=== PATIENT | female | born 1930 | race Caucasian/White ===

== ENCOUNTER 2017-07-07 06:34 | Inpatient (IN) ==
[2017-07-07] MEDS ORDERED: IOPAMIDOL 100 ML BOTTLE IV ONE (06:35)
--- NOTE | 2017-07-07 07:22 | Emergency Department Note ---
Abdominal Pain HPI - General Chief Complaint: Abdominal Pain Stated Complaint: Lower Abdominal Discomfort Time Seen by Provider: 07/07/17 07:12 Mode of arrival: ambulatory - History of Present Illness HPI Narrative: Abdominal pain started yesterday evening, seemed to be worse this morning. She describes the pain as being a little bit more on the right lower quadrant than the left. Mainly suprapubic pain. She denies any urinary symptoms however. Denies any nausea now, no fevers, she did take some Tylenol at about 1:00 or 2: 00 in the morning. None since then. Denies epigastric discomfort, she still has her appendix, still has her gallbladder. No history of this pain before. MD Complaint: abdominal pain - Related Data Home Medications Medication Instructions Recorded Confirmed Cholecalciferol (Vitd3)/Vit K2 [D3 1,000 mg PO DAILY 09/07/16 07/07/17 + K2 Dots 1,000 Units Tab] Flaxseed 453 gm PO DAILY 09/07/16 07/07/17 L.acidoph,Paracasei, B.lactis 1 each PO DAILY 09/07/16 07/07/17 [Probiotic] Levothyroxine [Synthroid] 125 mcg PO DAILY 09/07/16 07/07/17 Mecobalamin [B-12] 1,000 mcg PO DAILY 09/07/16 07/07/17 [place]-3/Dha/Epa/Fish Oil [Fish Oil 1 each PO DAILY 09/07/16 07/07/17 1,000 mg Softgel] Vit A,C & E/Lutein/Minerals 1 tab PO DAILY 09/07/16 07/07/17 [Ocuvite] Warfarin [Coumadin] 5 mg PO DAILY 09/07/16 07/07/17 amLODIPine [Norvasc] 10 mg PO DAILY 09/07/16 07/07/17 Allergies Allergy/AdvReac Type Severity Reaction Status Date / Time clopidogrel [From Plavix] AdvReac Intermediate Weakness Verified 06/25/17 09:34 Review of Systems All systems ED: reviewed and negative except as stated. Abdominal Pain PMH - Past Medical History Attestation: Yes: The following information was validated with the patient. Medical history: Reports: arthritis, atrial fibrillation, hypertension, thyroid disease Surgical history ED: Reports: knee replacement, orthopedic, other, pacemaker/ AICD Family history: Reports: no significant family history - Social History Smoking status: Former smoker Alcohol use: Reports: Rarely Drug use: Reports: none Physical Exam - General Limitations: no limitations General appearance: alert - Head Head exam: atraumatic, normocephalic - Eye Eye exam: Present: normal appearance, PERRL, EOMI - ENT ENT exam: normal exam, normal oropharynx, mucous membranes moist, normal external ear exam - Neck Neck exam: Present: normal inspection, full ROM, trachea midline - Chest Chest inspection: Present: normal inspection, symmetric chest wall rise. Absent : tenderness - Respiratory Respiratory exam: Present: normal lung sounds bilaterally. Absent: respiratory distress, wheezes - Cardiovascular Cardiovascular exam: Present: regular rate, normal rhythm, normal heart sounds - Abdominal Exam Abdominal exam: Present: soft, tenderness, normal bowel sounds. Absent: distention, guarding, rebound - Extremities Exam Extremities exam: Present: normal inspection, full ROM. Absent: tenderness - Back Exam Back exam: Present: normal inspection. Absent: CVA tenderness (R), CVA tenderness (L) - Neurological Exam Neurological exam: Present: alert, oriented X3, CN II-XII intact - Psychiatric Psychiatric exam: Present: normal affect - Skin Skin exam: Present: warm, dry, intact. Absent: rash Course - Reevaluation(s) Reevaluation #1: Patient signout at 9 AM, labs are pending. Vital Signs Temperature 97.8 F 07/07/17 06:35 Pulse Rate 75 07/07/17 06:35 Respiratory Rate 18 07/07/17 06:35 Blood Pressure 151/68 07/07/17 06:35 Pulse Oximetry (%) 94 07/07/17 06:35 Temperature 97.8 F 07/07/17 06:35 Pulse Rate 75 07/07/17 07:32 Respiratory Rate 18 07/07/17 06:35 Blood Pressure 153/81 07/07/17 07:31 Pulse Oximetry (%) 94 07/07/17 07:32 Abdominal Pain - Lab Data Result diagrams: 07/07/17 07:44 07/07/17 07:44 Disposition Pt seen by RAG COLLECTOR/PA only: No Referrals: Hetal Stubbs MD [Primary Care Provider] -
[2017-07-07] MEDS ORDERED: LACTATED RINGERS 1,000 ML IV ONE (07:25)
[2017-07-07] MEDS ORDERED: ONDANSETRON 4 MG/2 ML VIAL IV ONE (07:25)
[2017-07-07] MEDS ORDERED: PHYTONADIONE 10 MG/ML AMPUL SQ ONE (09:55)
[2017-07-07] MEDS ORDERED: PHYTONADIONE 10 MG/ML AMPUL ONE (10:05)
[2017-07-07 11:04] LABS: ALT/SGPT 22 U/l (0-40); Albumin 4.2 gm/dL (3.2-5.2); Albumin/Globulin Ratio 1.6 (1.0-2.3); Alkaline Phosphatase 88 U/L (39-117); Anisocytosis 2+ (NONE SEEN); Band Neutrophils % 1 % (0-10); Blood Urea Nitrogen 18 mg/dl (8-23); C-Reactive Protein 1.5 mg/dl (0.0-0.8); Eosinophils % (Manual) 1 % (0-7); Hypochromasia 2+ (NONE SEEN); Lymphocytes % 22 % (15-49); Mean Cell Volume 66.5 fL (80.0-100.0); Mean Corpuscular HGB Conc 30.9 g/dL (31.0-36.0); Mean Corpuscular Hemoglobin 20.6 pg (26.0-34.0); Monocytes % (Manual) 6 % (1-12); Platelet Count 410 K/mcL (140-440); Platelet Estimate NORMAL (NORMAL); RBC Morphology ABNORM (NORMAL); Red Cell Distribution Width 21.1 % (11.5-14.5); Segmented Neutrophils % 70 % (38-78)
[2017-07-07 11:04] LABS: Appearance,Urine CLEAR; Bacteria,Urine 0 /hpf (0); Bilirubin,Urine NEG (NEG); Color,Urine YELLOW; Glucose,Urine (UA) NEGATIVE (NEG); Leukocyte Esterase,Urine NEG /uL (NEG); Nitrate,Urine NEG (NEG); Protein,Urine NEG (NEG); Specific Gravity,Urine 1.012 (1.000-1.035); Urine Blood NEG mg/dL (<0.03); Urine RBC 0 /hpf (0-1); Urine Squamous Epithelial Cell 0 /hpf (0-4); Urine WBC 1 /hpf (0-4); Urobilinogen,Urine NEG (NEG)
--- NOTE | 2017-07-07 11:27 | Emergency Department Note ---
Abdominal Pain HPI - General Chief Complaint: Abdominal Pain Stated Complaint: Lower Abdominal Discomfort Time Seen by Provider: 07/07/17 07:12 Source: patient, old records reviewed Mode of arrival: ambulatory Limitations: no limitations - History of Present Illness HPI Narrative: Dr. Skinner checked this 87-year-old female patient out to me at shift change. Reviewed his note as well as her summary in addition to his verbal checkout. I then reinterviewed the patient and reassessed her after getting laboratory back. She reports a history of diarrhea 3 months ago was followed by a colonoscopy showing colitis. She is on budesonide for that. She is also on Coumadin for her fibrillation and has had trouble controlling that since the diarrhea/colonoscopy and moving into [place]-she no longer cooks food but eats in the cafeteria. Her pain seems to be suprapubic and off to the right lower quadrant with perhaps even some at the right upper quadrant. She still has her appendix MD Complaint: abdominal pain - Related Data Home Medications Medication Instructions Recorded Confirmed Cholecalciferol (Vitd3)/Vit K2 [D3 1,000 mg PO DAILY 09/07/16 07/07/17 + K2 Dots 1,000 Units Tab] Flaxseed 453 gm PO DAILY 09/07/16 07/07/17 L.acidoph,Paracasei, B.lactis 1 each PO DAILY 09/07/16 07/07/17 [Probiotic] Levothyroxine [Synthroid] 125 mcg PO DAILY 09/07/16 07/07/17 Mecobalamin [B-12] 1,000 mcg PO DAILY 09/07/16 07/07/17 [place]-3/Dha/Epa/Fish Oil [Fish Oil 1 each PO DAILY 09/07/16 07/07/17 1,000 mg Softgel] Vit A,C & E/Lutein/Minerals 1 tab PO DAILY 09/07/16 07/07/17 [Ocuvite] Warfarin [Coumadin] 5 mg PO DAILY 09/07/16 07/07/17 amLODIPine [Norvasc] 10 mg PO DAILY 09/07/16 07/07/17 Allergies Allergy/AdvReac Type Severity Reaction Status Date / Time clopidogrel [From Plavix] AdvReac Intermediate Weakness Verified 06/25/17 09:34 Review of Systems All systems ED: reviewed and negative except as stated. Abdominal Pain PMH - Past Medical History Attestation: Yes: The following information was validated with the patient. Medical history: Reports: arthritis, atrial fibrillation, hypertension, thyroid disease Family history: Reports: no significant family history - Social History Smoking status: Former smoker Alcohol use: Reports: Rarely Drug use: Reports: none Physical Exam Her belly exam shows tenderness right lower quadrant and less so right upper quadrant. Alert oriented talking normally. Not appear to be in any distress - General Limitations: no limitations General appearance: alert Course Vital Signs Temperature 97.8 F 07/07/17 06:35 Pulse Rate 75 07/07/17 06:35 Respiratory Rate 18 07/07/17 06:35 Blood Pressure 151/68 07/07/17 06:35 Pulse Oximetry (%) 94 07/07/17 06:35 Temperature 97.8 F 07/07/17 06:35 Pulse Rate 75 07/07/17 13:27 Respiratory Rate 18 07/07/17 06:35 Blood Pressure 156/72 07/07/17 13:27 Pulse Oximetry (%) 95 07/07/17 13:27 Abdominal Pain - Lab Data Lab results reviewed: Yes I reviewed the patient's lab results. Result diagrams: 07/07/17 07:44 07/07/17 07:44 Lab Results 07/07/17 07/07/17 07/07/17 Range/Units 07:44 07:44 07:44 WBC 14.2 H (4.5-11.0) K/mcL RBC 4.70 (4.00-5.20) M/mcL Hgb 9.7 L (12.0-15.0) g/dL Hct 31.3 L (36.0-48.0) % MCV 66.5 L (80.0-100.0) fL MCH 20.6 L (26.0-34.0) pg MCHC 30.9 L (31.0-36.0) g/dL RDW 21.1 H (11.5-14.5) % Plt Count 410 (140-440) K/mcL MPV 8.6 (7.4-10.4) fL Total Counted 100 Seg Neutrophils % 70 (38-78) % Band Neutrophils % 1 (0-10) % Lymphocytes % 22 (15-49) % Monocytes % (Manual) 6 (1-12) % Eosinophils % (Manual) 1 (0-7) % Platelet Estimate Normal (NORMAL) RBC Morphology Abnorm A (NORMAL) Polychromasia 1+ A (NONE SEEN) Hypochromasia 2+ A (NONE SEEN) Anisocytosis 2+ A (NONE SEEN) Microcytosis 3+ A (NONE SEEN) RBC Fragments Few A (NONE SEEN) PT TNP INR TNP Sodium 140 (133-145) mmol/L Potassium 4.2 (3.3-5.1) mmol/L Chloride 104 (96-108) mmol/L Carbon Dioxide 22 (22-30) mmol/L Anion Gap 14.0 (8-16) BUN 18 (8-23) mg/dl Creatinine 0.9 (0.6-1.1) mg/dl GFR Calculation 57 Glucose 100 (70-105) mg/dL Calcium 9.2 (8.6-10.4) mg/dl Total Bilirubin 1.1 H (0.0-1.0) mg/dL AST 21 (0-37) U/l ALT 22 (0-40) U/l Alkaline Phosphatase 88 (39-117) U/L C-Reactive Protein 1.5 H (0.0-0.8) mg/dl Total Protein 6.8 (5.9-8.4) gm/dL Albumin 4.2 (3.2-5.2) gm/dL Globulin 2.6 (2.2-3.7) gm/dL Albumin/Globulin Ratio 1.6 (1.0-2.3) Urine Color Urine Appearance Urine pH (5.0-9.0) Ur Specific [place] (1.000-1.035) Urine Protein (NEG) mg/dL Urine Glucose (UA) (NEG) mg/dL Urine Ketones (NEG) mg/dL Urine Occult Blood (<0.03) mg/dL Urine Nitrate (NEG) Urine Bilirubin (NEG) mg/dL Urine Urobilinogen (NEG) mg/dL Ur Leukocyte Esterase (NEG) /uL Urine RBC (0-1) /hpf Urine WBC (0-4) /hpf Ur Squamous Epith Cells (0-4) /hpf Urine Bacteria (0) /hpf Ur Culture Indicated? 07/07/17 07/07/17 Range/Units 07:49 08:53 WBC (4.5-11.0) K/mcL RBC (4.00-5.20) M/mcL Hgb (12.0-15.0) g/dL Hct (36.0-48.0) % MCV (80.0-100.0) fL MCH (26.0-34.0) pg MCHC (31.0-36.0) g/dL RDW (11.5-14.5) % Plt Count (140-440) K/mcL MPV (7.4-10.4) fL Total Counted Seg Neutrophils % (38-78) % Band Neutrophils % (0-10) % Lymphocytes % (15-49) % Monocytes % (Manual) (1-12) % Eosinophils % (Manual) (0-7) % Platelet Estimate (NORMAL) RBC Morphology (NORMAL) Polychromasia (NONE SEEN) Hypochromasia (NONE SEEN) Anisocytosis (NONE SEEN) Microcytosis (NONE SEEN) RBC Fragments (NONE SEEN) PT 49.0 H INR 5.1 H Sodium (133-145) mmol/L Potassium (3.3-5.1) mmol/L Chloride (96-108) mmol/L Carbon Dioxide (22-30) mmol/L Anion Gap (8-16) BUN (8-23) mg/dl Creatinine (0.6-1.1) mg/dl GFR Calculation Glucose (70-105) mg/dL Calcium (8.6-10.4) mg/dl Total Bilirubin (0.0-1.0) mg/dL AST (0-37) U/l ALT (0-40) U/l Alkaline Phosphatase (39-117) U/L C-Reactive Protein (0.0-0.8) mg/dl Total Protein (5.9-8.4) gm/dL Albumin (3.2-5.2) gm/dL Globulin (2.2-3.7) gm/dL Albumin/Globulin Ratio (1.0-2.3) Urine Color Yellow Urine Appearance Clear Urine pH 7.0 (5.0-9.0) Ur Specific [place] 1.012 (1.000-1.035) Urine Protein Neg (NEG) mg/dL Urine Glucose (UA) Negative (NEG) mg/dL Urine Ketones Neg (NEG) mg/dL Urine Occult Blood Neg (<0.03) mg/dL Urine Nitrate Neg (NEG) Urine Bilirubin Neg (NEG) mg/dL Urine Urobilinogen Neg (NEG) mg/dL Ur Leukocyte Esterase Neg (NEG) /uL Urine RBC 0 (0-1) /hpf Urine WBC 1 (0-4) /hpf Ur Squamous Epith Cells 0 (0-4) /hpf Urine Bacteria 0 (0) /hpf Ur Culture Indicated? No - Radiology Data Radiology results reviewed: Yes I reviewed the patient's radiology results. CT scan of the abdomen pelvis with contrast shows mass at cecum 3.5 x 4 cm with dilated large appendix and stranding consistent with appendicitis or cecal mass or both. Disposition Pt seen by TRANSPORTATION MANAGER/PA only: No Clinical Impression: Supratherapeutic INR, Mass of cecum Appendicitis Qualifiers: Appendicitis type: acute appendicitis Acute appendicitis type: unspecified acute appendicitis type Qualified Code(s): K35.80 - Unspecified acute appendicitis Summary: She is given 2.5 mg subcu vitamin K for supratherapeutic INR-she is not currently bleeding anywhere obvious but is noted to have Hemoccult positive on stool-apparently she had several polyps removed during her colonoscopy recently. CT scan of the abdomen pelvis with contrast was ordered secondary to elevated white blood cell count and right lower quadrant pain. CT scan as above showed possible appendicitis or cecal mass or both Discussed case with Dr. Eduardo Deleon first-he advised me that when he did colonoscopy 13 days ago he did not see any cecal mass but because her INR is elevated this may be a hematoma. He had to give her vitamin K prior to colonoscopy secondary to elevated INR then. He said that he would contact Dr. Humphrey himself to further discuss Clinically the patient has pain at McBurney's point, leukocytosis and a dilated appendix with fat stranding on CT scan so appendicitis will need to be further evaluated however she is not a candidate for surgery at this point because of her elevated INR. I discussed her situation with Dr. Broderick Hmuphrey, surgeon, he agreed to accept the patient for further inpatient care and evaluation-see his consult note for details. He said that will notify hospitalist as well Disposition: Xfer As Inpt ([facility]) Condition: Serious Referrals: Eduardo Hull MD [Physician] - Broderick Humphrey MD [Physician] - Hetal Stubbs MD [Primary Care Provider] - Jose A Sol MD [Physician] -
--- NOTE | 2017-07-07 13:24 | Cat Scan Report ---
CLINICAL INFORMATION: Reason for Exam:abd pain, rlq pain FINDINGS: The patient was imaged following oral and intravenous contrast scanning from the diaphragm to the symphysis pubis. Sagittal and coronal reformats were created. The heart is mild to moderately enlarged and there is a dual-chamber pacemaker in the right side. There is a small to moderate size layering right-sided pleural effusion and a small layering left-sided effusion. Ill-defined patchy alveolar infiltrates are present in the basilar segments bilaterally with milder involvement inferiorly in the right middle lobe and lingula. The liver and spleen are normal in size and homogeneous. The gallbladder and bile ducts are normal. No abnormality seen within the pancreas, adrenals or kidneys. There is a lobulated mass in the cecum which extends up to but does not cover the ileocecal valve. It measures 3.3 x 3.5 x 4.4 cm. The appendix is distended and measures 12 mm at the base. There is stranding of the fat around the appendix and cecum. No abscess is present in this region. Barium is able to pass through normal terminal ileum into the colon without obstruction. Distal to the cecum the large intestine appears normal and there is no evidence of diverticulitis. Small amount of ascites is present deep in the right lower pelvis. Uterus and ovaries are atrophic. Urinary bladder appears normal but is unopacified. There is a [place] calcified plaque in the arteries throughout the abdomen and pelvis. Advanced degenerative disc disease and arthritis are present throughout the lumbar spine and visualized thoracic spine. No lytic or blastic lesion are detected. IMPRESSION: Mass in the cecum extending into the appendix. This is probably a colon cancer. This is less likely acute appendicitis with secondary infection of the cecum. Small amount of ascites Congestive heart failure which has become worse since 07/02/17 Dr. Espitia was called with the results Interpreted and Authenticated by: Deon Pereira 07/07/17
[2017-07-07] MEDS ORDERED: ONDANSETRON 4 MG/2 ML VIAL IV PRN (14:50)
[2017-07-07] MEDS ORDERED: ACETAMINOPHEN 325 MG TABLET PO PRN (14:50)
[2017-07-07] MEDS ORDERED: 0.9 % SODIUM CHLORIDE 250 ML IV SCH (15:15)
--- NOTE | 2017-07-07 15:20 | General Surg History&Physical ---
History of Present Illness Patient information: Note initiated : 07/07/17 at 3:14 pm Service Date, if different from initiated Date: [] Patient: Josh Ac a 87 y/o F admitted on for Lower Abdominal Discomfort. Chief Complaint: [Abdominal pain] HPI: Ms. Ac is a 87 year old F admitted with right lower quadrant and suprapubic abdominal pain without nausea or vomiting. Symptoms started on 06 July and progressed throughout the day. She had worsening symptoms this morning and presented to the emergency room. History is that she underwent a colonoscopy on 24 June. The colonoscopy report shows that the cecum was evaluated and ileocecal valve was cannulated and the terminal ileum was extended. Biopsies were taken from the ileum and random biopsies were taken from the colon to assess for microscopic colitis she also had polyps in the ascending descending and sigmoid colon which were snared. The patient has been on anticoagulant therapy and at the time of the colonoscopy and biopsies her INR was greater than 3. The exact number is not known. Today her INR is over 5. Pictures of the cecum including the opening of the appendix does not show a cecal mass. The appendiceal opening is unremarkable. CT of the abdomen done today shows a lobulated mass in the cecum which extends up to the ileocecal valve measuring 3.3 x 3.5 x 4.4 cm. The appendiceal appendix is distended to 12 mm and has surrounding stranding. The patient's symptoms suggest acute appendicitis of rather recent onset. Based on the history given it is probable that she has developed a hematoma of the cecum which has blocked the opening of the appendix causing obstructive type appendicitis. Since her INR is significantly elevated the plan will be to correct her INR and treat her appendicitis with antibiotics with the anticipation that as the hematoma resolves the inflammation of the appendix will resolve and she will not need operative therapy. The patient has a history of recent onset of cardiomegaly and symptoms of mild congestive heart failure this is confirmed by the recent chest x-ray as well as the CT that was done today. She does have recent onset of increasing shortness of breath. She was supposed to have echocardiogram done today but she ended up in the hospital. Review of Systems - Constitutional fatigue, weakness - EENT Nose, mouth and throat: abnormal hearing, dizziness - Cardiovascular dyspnea on exertion, irregular heart rhythm, lightheadedness - Respiratory dyspnea on exertion, other (Shortness of breath) - Gastrointestinal abdominal pain, cramping, diarrhea, loose stools, no nausea, no vomiting - Genitourinary Genitourinary: no hematuria, no pelvic pain, no urinary incontinence - Musculoskeletal arthralgias, stiffness - Integumentary no bleeding lesions, no changing lesions, no pruritus - Neurological no abnormal gait, no confusion, no frequent falls, no syncope - Psychiatric no anxiety, no confusion, no depression - Endocrine fatigue, no palpitations - Hematologic/Lymphatic no easy bleeding, no easy bruising, no lymphadenopathy - Allergic/Immunologic no tongue swelling, no throat swelling, no uticaria, no wheezing, no lip swelling Past History Past medical history: History of atrial fibrillation and supraventricular tachycardia AICD placement after radiofrequency ablation Total knee arthroplasty History of colon polyps Congestive heart failure Hypertension Chronic anemia Past surgical history: Total knee arthroplasty AICD placement Radiofrequency ablation for supraventricular tachycardia Past family history: History not known Past social history: Former smoker Occasional alcohol use Denies drug use Medications and Allergies Home Medications Medication Instructions Recorded Confirmed Type Cholecalciferol (Vitd3)/Vit K2 [D3 1,000 mg PO DAILY 09/07/16 07/07/17 History + K2 Dots 1,000 Units Tab] Flaxseed 453 gm PO DAILY 09/07/16 07/07/17 History L.acidoph,Paracasei, B.lactis 1 each PO DAILY 09/07/16 07/07/17 History [Probiotic] Levothyroxine [Synthroid] 125 mcg PO DAILY 09/07/16 07/07/17 History Mecobalamin [B-12] 1,000 mcg PO DAILY 09/07/16 07/07/17 History [place]-3/Dha/Epa/Fish Oil [Fish Oil 1 each PO DAILY 09/07/16 07/07/17 History 1,000 mg Softgel] Vit A,C & E/Lutein/Minerals 1 tab PO DAILY 09/07/16 07/07/17 History [Ocuvite] Warfarin [Coumadin] 5 mg PO DAILY 09/07/16 07/07/17 History amLODIPine [Norvasc] 10 mg PO DAILY 09/07/16 07/07/17 History Allergies Allergy/AdvReac Type Severity Reaction Status Date / Time clopidogrel [From Plavix] AdvReac Intermediate Weakness Verified 06/25/17 09:34 Exam Temp Pulse Resp BP Pulse Ox 97.8 F 75 18 156/72 95 07/07/17 06:35 07/07/17 13:27 07/07/17 06:35 07/07/17 13:27 07/07/17 13:27 - General physical appearance well developed, well nourished, no distress - Eyes PERRL, normal ocular movement - ENT normal pinna, normal nares, normal mucosa, no hearing loss, no congestion - Head Head exam IM: Present: atraumatic, normocephalic - Neck no masses, no bruits, trachea midline, no lymphadectomy, no venous distension - Cardiovascular Cardiovascular exam IM: Present: normal rate and rhythm - Respiratory normal expansion, normal respiratory effort, other (Basilar rales with decreased breath sounds at bases) - Abdomen Abdomen: Present: soft, tender (Mild abdominal distention with good active bowel sounds; tenderness with guarding and right lower quadrant but without mass ), bowel sounds Hernia: Present: none - Genitourinary Present: normal external genitalia - Integumentary Present: no rash, no growths, no abnormal pigmentation - Neurologic Present: normal coordination, normal sensation - Musculoskeletal Present: normal gait, normal posture - Psychiatric Present: oriented to time, oriented to person, oriented to place, speech is normal, memory intact Assessment and Plan (1) Appendicitis Will start with antibiotic treatment since her appendiceal inflammation is secondary to a probable cecal hematoma If her symptoms should worsen she will have laparotomy Status: Acute Qualifiers: Appendicitis type: acute appendicitis Acute appendicitis type: unspecified acute appendicitis type Qualified Code(s): K35.80 - Unspecified acute appendicitis (2) Mass of cecum Probable hematoma related to colonoscopy and cecal biopsies with associated anticoagulated state Status: Acute (3) Supratherapeutic INR will correct with vitamin K and fresh frozen plasma to a level less than 2 Status: Acute (4) Congestive heart failure We will monitor closely and add Lasix for diuresis as she received her FFP to prevent worsening Baseline proBNP will be obtained Baseline echocardiogram will also be done Status: Acute (5) Hypertension Continue home medications Status: Acute
[2017-07-07] MEDS: PIPERACILLIN SODIUM/TAZOBACTAM 3.375 GM in 0.9 % SODIUM CHLORIDE 50 ML IV SCH ×2 (17:37→23:47)
[2017-07-07] MEDS: FUROSEMIDE 20 MG/2 ML VIAL IV SCH (17:37)
[2017-07-07] MEDS: 0.9 % SODIUM CHLORIDE 1,000 ML IV SCH (17:37)
[2017-07-07] MEDS: PHYTONADIONE 10 MG/ML AMPUL SQ SCH (17:39)
[2017-07-07] MEDS: POTASSIUM CHLORIDE 20 MEQ TABLET PO SCH (17:40)
[2017-07-08] MEDS: PIPERACILLIN SODIUM/TAZOBACTAM 3.375 GM in 0.9 % SODIUM CHLORIDE 50 ML IV SCH ×5 (00:05→23:58)
[2017-07-08] MEDS ORDERED: FUROSEMIDE 20 MG/2 ML VIAL IV ONE ×2 (00:21→00:33)
[2017-07-08] MEDS: 0.9 % SODIUM CHLORIDE 10 ML SYRINGE IV SCH ×4 (00:31→21:48)
[2017-07-08] MEDS ORDERED: NITROGLYCERIN 0.4 MG TAB.SUBL SL PRN (02:18)
[2017-07-08] MEDS ORDERED: 0.9 % SODIUM CHLORIDE 1,000 ML IV SCH (02:30)
[2017-07-08] MEDS ORDERED: NITROGLYCERIN 0.4 MG TAB.SUBL SL ONE (02:33)
[2017-07-08] MEDS: PHYTONADIONE 10 MG/ML AMPUL SQ SCH ×2 (03:43→17:18)
[2017-07-08 03:54] LABS: Basophils # (Auto) 0 K/mcL (0.0-0.3); Basophils % (Auto) 0.3 % (0.0-2.0); Eosinophils # (Auto) 0.3 K/mcL (0.0-0.7); Eosinophils % (Auto) 3.3 % (0.0-7.0); Granulocytes % (Auto) 70.3 % (38.0-78.0); Lymphocytes # (Auto) 1.5 K/mcL (1.5-4.8); Lymphocytes % (Auto) 18.4 % (15.5-49.0); Mean Cell Volume 65.8 fL (80.0-100.0); Mean Corpuscular HGB Conc 30.8 g/dL (31.0-36.0); Mean Corpuscular Hemoglobin 20.3 pg (26.0-34.0); Monocytes # (Auto) 0.6 K/mcL (0.1-0.9); Monocytes % (Auto) 7.7 % (1.0-12.0); Platelet Count 411 K/mcL (140-440); RBC 4.36 M/mcL (4.00-5.20); Red Cell Distribution Width 20.1 % (11.5-14.5)
[2017-07-08 03:57] LABS: Creatine Kinase MB 1.6 ng/ml (0-2.9)
[2017-07-08 04:21] LABS: ALT/SGPT 18 U/l (0-40); Albumin 4.1 gm/dL (3.2-5.2); Albumin/Globulin Ratio 1.7 (1.0-2.3); Alkaline Phosphatase 88 U/L (39-117); Blood Urea Nitrogen 11 mg/dl (8-23); Creatine Kinase 108 IU/L (24-170)
[2017-07-08] MEDS: LEVOTHYROXINE 125 MCG TABLET PO SCH (07:11)
[2017-07-08 07:12] LABS: Mean Corpuscular HGB Conc 31.2 g/dL (31.0-36.0); Mean Corpuscular Hemoglobin 20.6 pg (26.0-34.0); Platelet Count 410 K/mcL (140-440); RBC 4.38 M/mcL (4.00-5.20)
[2017-07-08 07:31] LABS: ALT/SGPT 18 U/l (0-40); Albumin/Globulin Ratio 1.4 (1.0-2.3); Alkaline Phosphatase 85 U/L (39-117); Bilirubin,Direct 0.3 mg/dL (0.0-0.3); Blood Urea Nitrogen 11 mg/dl (8-23); Gamma Glutamyl Transpeptidase 32 U/L (5-36); Uric Acid 3.6 mg/dL (2.5-8.0)
[2017-07-08] MEDS: FUROSEMIDE 20 MG/2 ML VIAL IV SCH ×2 (07:58→16:59)
[2017-07-08] MEDS: MAGNESIUM OXIDE 400 MG TABLET PO SCH ×2 (07:59→20:30)
[2017-07-08] MEDS: amLODIPine 10 MG TABLET PO SCH (07:59)
[2017-07-08] MEDS: POTASSIUM CHLORIDE 20 MEQ TABLET PO SCH ×2 (07:59→16:58)
[2017-07-08 08:29] LABS: Anisocytosis 1+ (NONE SEEN); Eosinophils % (Manual) 1 % (0-7); Hypochromasia 2+ (NONE SEEN); Lymphocytes % 25 % (15-49); Monocytes % (Manual) 7 % (1-12); Ovalocytes FEW (NONE SEEN); Platelet Estimate NORMAL (NORMAL); RBC Morphology ABNORM (NORMAL); Segmented Neutrophils % 67 % (38-78)
[2017-07-08] MEDS ORDERED: 0.9 % SODIUM CHLORIDE 250 ML IV SCH (09:00)
--- NOTE | 2017-07-08 12:49 | General Surgery Progress Note ---
Subjective Patient reports: feels better, pain is less, flatus, no bowel movement, afebrile Narrative: Note initiated : 07/08/17 at 12:46 pm Service Date, if different from initiated Date: [] Patient: Josh Ac 87 y/o F admitted on 07/07/17 for Lower Abd Discomfort /Appendicitis, Mass of Cecum. Chief Complaint: [Patient is doing well. She had some upper midline back pain associated with a warm feeling across her chest and the subclavicular areas bilaterally during the night. Her vital signs were totally stable. She did not have any tachycardia or changes in vitals during this time. A code white was undertaken. All of the testing was normal and the patient remained stable though she still has the upper back pain which is a chronic entity. She states that the right lower quadrant discomfort is significantly improved. She has minimal tenderness with deep palpation. She denies nausea. She has been afebrile and her white blood count has decreased to 7.7. Her PT has decreased to 203.5 with INR 2. Her comprehensive panel is normal.] Objective Temp Pulse Resp BP Pulse Ox 98.7 F 76 16 130/70 96 07/08/17 12:05 07/08/17 12:05 07/08/17 12:05 07/08/17 12:05 07/08/17 12:05 - Additional Data Intake & Output - Last 24 hours: Intake & Output 07/06/17 07/07/17 07/08/17 07/09/17 05:59 05:59 05:59 05:59 Intake Total 1978 / 1978 660 / 660 Output Total 3025 / 3025 1300 / 1300 Balance -1046 / -1046 -640 / -640 Weight 158 lb - General physical appearance no distress, other (Mild upper and mid back pain which is unchanged since admission. Her abdominal pain is significantly improved) - Eyes PERRL (.) - ENT no congestion - Neck no venous distension - Respiratory normal expansion, normal respiratory effort, clear to auscultation - Cardiovascular Cardiovascular exam: Present: irregular rhythm, +S1, +S2. Absent: JVD - Abdomen tender (Mild tenderness in right lower quadrant without guarding or mass; good active bowel sounds) - Integumentary no rash, no growths, no abnormal pigmentation - Neurologic normal coordination, normal sensation - Musculoskeletal normal gait, normal posture - Psychiatric oriented to time, oriented to person, oriented to place, speech is normal, memory intact - Labs 07/08/17 05:49 07/08/17 05:49 Diabetes panel 07/08/17 07/08/17 Range/Units 02:41 05:49 Sodium 142 143 (133-145) mmol/L Potassium 3.9 3.8 (3.3-5.1) mmol/L Chloride 103 101 (96-108) mmol/L Carbon Dioxide 27 28 (22-30) mmol/L BUN 11 11 (8-23) mg/dl Creatinine 0.9 1.1 (0.6-1.1) mg/dl Glucose 94 92 (70-105) mg/dL Calcium 9.4 9.2 (8.6-10.4) mg/dl AST 12 12 (0-37) U/l ALT 18 18 (0-40) U/l Alkaline Phosphatase 88 85 (39-117) U/L Total Protein 6.5 6.8 (5.9-8.4) gm/dL Albumin 4.1 4.0 (3.2-5.2) gm/dL Triglycerides 84 (<150) mg/dl Calcium panel 07/08/17 07/08/17 Range/Units 02:41 05:49 Calcium 9.4 9.2 (8.6-10.4) mg/dl Phosphorus 4.4 (2.7-4.5) mg/dL Albumin 4.1 4.0 (3.2-5.2) gm/dL Pituitary panel 07/08/17 07/08/17 Range/Units 02:41 05:49 Sodium 142 143 (133-145) mmol/L Potassium 3.9 3.8 (3.3-5.1) mmol/L Chloride 103 101 (96-108) mmol/L Carbon Dioxide 27 28 (22-30) mmol/L BUN 11 11 (8-23) mg/dl Creatinine 0.9 1.1 (0.6-1.1) mg/dl Glucose 94 92 (70-105) mg/dL Calcium 9.4 9.2 (8.6-10.4) mg/dl Adrenal panel 07/08/17 07/08/17 Range/Units 02:41 05:49 Sodium 142 143 (133-145) mmol/L Potassium 3.9 3.8 (3.3-5.1) mmol/L Chloride 103 101 (96-108) mmol/L Carbon Dioxide 27 28 (22-30) mmol/L BUN 11 11 (8-23) mg/dl Creatinine 0.9 1.1 (0.6-1.1) mg/dl Glucose 94 92 (70-105) mg/dL Calcium 9.4 9.2 (8.6-10.4) mg/dl Total Bilirubin 1.7 H 1.6 H (0.0-1.0) mg/dL AST 12 12 (0-37) U/l ALT 18 18 (0-40) U/l Alkaline Phosphatase 88 85 (39-117) U/L Total Protein 6.5 6.8 (5.9-8.4) gm/dL Albumin 4.1 4.0 (3.2-5.2) gm/dL Assessment and Plan (1) Appendicitis Status: Acute Assessment and plan: Symptoms are clinically improved with Decreased tenderness. We will continue IV antibiotics Will allow clear liquids Current Visit: Yes (2) Mass of cecum Status: Acute Current Visit: Yes (3) Supratherapeutic INR Status: Acute Assessment and plan: Improved with vitamin K and fresh frozen plasma 1 unit of fresh frozen plasma will be given today Current Visit: Yes (4) Congestive heart failure Status: Acute Assessment and plan: Clinically stable with no evidence of exacerbation of CHF. Current Visit: Yes (5) Hypertension Status: Acute Assessment and plan: Clinically controlled Current Visit: Yes - Time Spent With Patient Total time spent is greater than 50% in coordination of care (as documented) at patient's floor/unit and/or counseling patient:
[2017-07-08] MEDS: 0.9 % SODIUM CHLORIDE 1,000 ML IV SCH (16:59)
[2017-07-09] MEDS: 0.9 % SODIUM CHLORIDE 10 ML SYRINGE IV SCH ×3 (05:28→22:13)
[2017-07-09] MEDS: PIPERACILLIN SODIUM/TAZOBACTAM 3.375 GM in 0.9 % SODIUM CHLORIDE 50 ML IV SCH ×2 (05:28→11:35)
[2017-07-09 05:51] LABS: Mean Cell Volume 66.1 fL (80.0-100.0); Mean Corpuscular HGB Conc 31.2 g/dL (31.0-36.0); Mean Corpuscular Hemoglobin 20.6 pg (26.0-34.0); Platelet Count 451 K/mcL (140-440); RBC 4.78 M/mcL (4.00-5.20); Red Cell Distribution Width 20.2 % (11.5-14.5)
[2017-07-09 06:08] LABS: ALT/SGPT 15 U/l (0-40); Albumin 3.9 gm/dL (3.2-5.2); Albumin/Globulin Ratio 1.3 (1.0-2.3); Alkaline Phosphatase 81 U/L (39-117); Bilirubin,Direct 0.3 mg/dL (0.0-0.3); Blood Urea Nitrogen 13 mg/dl (8-23); Gamma Glutamyl Transpeptidase 32 U/L (5-36); Magnesium 2.2 mg/dL (1.6-2.5); Uric Acid 3.3 mg/dL (2.5-8.0)
[2017-07-09 06:44] LABS: Anisocytosis 1+ (NONE SEEN); Band Neutrophils % 2 % (0-10); Eosinophils % (Manual) 6 % (0-7); Hypochromasia 2+ (NONE SEEN); Lymphocytes % 29 % (15-49); Monocytes % (Manual) 16 % (1-12); Platelet Estimate INCREASED (NORMAL); RBC Morphology ABNORM (NORMAL); Segmented Neutrophils % 47 % (38-78)
[2017-07-09] MEDS: LEVOTHYROXINE 125 MCG TABLET PO SCH (07:05)
[2017-07-09] MEDS: amLODIPine 10 MG TABLET PO SCH (08:10)
[2017-07-09] MEDS: FUROSEMIDE 20 MG/2 ML VIAL IV SCH ×2 (08:10→16:16)
[2017-07-09] MEDS: POTASSIUM CHLORIDE 20 MEQ TABLET PO SCH ×2 (08:10→17:56)
[2017-07-09] MEDS: MAGNESIUM OXIDE 400 MG TABLET PO SCH ×2 (08:10→20:04)
[2017-07-09] MEDS: 0.9 % SODIUM CHLORIDE 1,000 ML IV SCH ×2 (14:02→18:43)
--- NOTE | 2017-07-09 14:26 | General Surgery Progress Note ---
Subjective Patient reports: feels better, pain is less, flatus, bowel movement, afebrile Narrative: Note initiated : 07/09/17 at 2:24 pm Service Date, if different from initiated Date: [] Patient: Josh Ac 87 y/o F admitted on 07/07/17 for Lower Abd Discomfort /Appendicitis, Mass of Cecum. Chief Complaint: [Patient feels much better. She has almost no pain at this time. She complains of hunger. She is having flatus and bowel movement and is tolerating liquid diet without difficulty. She is afebrile and her white blood count is normal.] Objective Temp Pulse Resp BP Pulse Ox 97.7 F 78 16 127/69 96 07/09/17 12:00 07/09/17 04:00 07/09/17 12:00 07/09/17 12:00 07/09/17 12:00 - Additional Data Intake & Output - Last 24 hours: Intake & Output 07/07/17 07/08/17 07/09/17 07/10/17 05:59 05:59 05:59 05:59 Intake Total 1978 / 1978 3050 / 3050 530 / 530 Output Total 3025 / 3025 3525 / 3525 Balance -1046 / -1046 -475 / -475 530 / 530 Weight 158 lb 152 lb - General physical appearance no distress, no pain - Eyes PERRL - ENT no congestion - Neck no venous distension - Respiratory normal respiratory effort, clear to auscultation - Cardiovascular Cardiovascular exam: Present: normal rate and rhythm, RRR, +S1, +S2. Absent: JVD - Abdomen soft, non tender, bowel sounds (Abdomen is soft benign and nontender with active bowel sounds. No masses or guarding) - Integumentary no rash, no growths, no abnormal pigmentation - Neurologic normal coordination, normal sensation - Musculoskeletal normal gait, normal posture - Psychiatric oriented to time, oriented to person, oriented to place, speech is normal, memory intact - Labs 07/09/17 04:25 07/09/17 04:25 Diabetes panel 07/09/17 Range/Units 04:25 Sodium 142 (133-145) mmol/L Potassium 4.2 (3.3-5.1) mmol/L Chloride 103 (96-108) mmol/L Carbon Dioxide 27 (22-30) mmol/L BUN 13 (8-23) mg/dl Creatinine 1.2 H (0.6-1.1) mg/dl Glucose 85 (70-105) mg/dL Calcium 9.4 (8.6-10.4) mg/dl AST 12 (0-37) U/l ALT 15 (0-40) U/l Alkaline Phosphatase 81 (39-117) U/L Total Protein 6.8 (5.9-8.4) gm/dL Albumin 3.9 (3.2-5.2) gm/dL Triglycerides 81 (<150) mg/dl Calcium panel 07/09/17 Range/Units 04:25 Calcium 9.4 (8.6-10.4) mg/dl Phosphorus 4.7 H (2.7-4.5) mg/dL Albumin 3.9 (3.2-5.2) gm/dL Pituitary panel 07/09/17 Range/Units 04:25 Sodium 142 (133-145) mmol/L Potassium 4.2 (3.3-5.1) mmol/L Chloride 103 (96-108) mmol/L Carbon Dioxide 27 (22-30) mmol/L BUN 13 (8-23) mg/dl Creatinine 1.2 H (0.6-1.1) mg/dl Glucose 85 (70-105) mg/dL Calcium 9.4 (8.6-10.4) mg/dl Adrenal panel 07/09/17 Range/Units 04:25 Sodium 142 (133-145) mmol/L Potassium 4.2 (3.3-5.1) mmol/L Chloride 103 (96-108) mmol/L Carbon Dioxide 27 (22-30) mmol/L BUN 13 (8-23) mg/dl Creatinine 1.2 H (0.6-1.1) mg/dl Glucose 85 (70-105) mg/dL Calcium 9.4 (8.6-10.4) mg/dl Total Bilirubin 1.4 H (0.0-1.0) mg/dL AST 12 (0-37) U/l ALT 15 (0-40) U/l Alkaline Phosphatase 81 (39-117) U/L Total Protein 6.8 (5.9-8.4) gm/dL Albumin 3.9 (3.2-5.2) gm/dL Assessment and Plan (1) Appendicitis Status: Acute Assessment and plan: Symptoms are clinically improved with Decreased tenderness. We will continue IV antibiotics Diet is advanced to full liquids Current Visit: Yes (2) Mass of cecum Status: Acute Assessment and plan: Schedule for CT of the abdomen and pelvis with contrast in the morning Current Visit: Yes (3) Supratherapeutic INR Status: Acute Assessment and plan: Present INR 1.8; will allow to slowly decrease at this time Current Visit: Yes (4) Congestive heart failure Status: Acute Assessment and plan: Clinically stable with no evidence of exacerbation of CHF. Current Visit: Yes (5) Hypertension Status: Acute Assessment and plan: Clinically controlled Current Visit: Yes - Time Spent With Patient Total time spent is greater than 50% in coordination of care (as documented) at patient's floor/unit and/or counseling patient:
[2017-07-09] MEDS: PIPERACILLIN SODIUM/TAZOBACTAM 2.25 GM in 0.9 % SODIUM CHLORIDE 50 ML IV SCH ×2 (17:56→23:50)
[2017-07-10] MEDS: 0.9 % SODIUM CHLORIDE 10 ML SYRINGE IV SCH ×2 (05:42→12:21)
[2017-07-10] MEDS: PIPERACILLIN SODIUM/TAZOBACTAM 2.25 GM in 0.9 % SODIUM CHLORIDE 50 ML IV SCH ×2 (05:43→12:20)
[2017-07-10 06:30] LABS: Mean Cell Volume 66.3 fL (80.0-100.0); Mean Corpuscular HGB Conc 31.5 g/dL (31.0-36.0); Mean Corpuscular Hemoglobin 20.9 pg (26.0-34.0); Platelet Count 410 K/mcL (140-440); Red Cell Distribution Width 20.6 % (11.5-14.5)
[2017-07-10] MEDS: LEVOTHYROXINE 125 MCG TABLET PO SCH (07:10)
[2017-07-10 07:17] LABS: ALT/SGPT 14 U/l (0-40); Albumin 3.6 gm/dL (3.2-5.2); Albumin/Globulin Ratio 1.2 (1.0-2.3); Alkaline Phosphatase 81 U/L (39-117); Bilirubin,Direct 0.3 mg/dL (0.0-0.3); Blood Urea Nitrogen 15 mg/dl (8-23); Gamma Glutamyl Transpeptidase 33 U/L (5-36); Magnesium 2.3 mg/dL (1.6-2.5); Uric Acid 3.3 mg/dL (2.5-8.0)
[2017-07-10 07:48] LABS: Anisocytosis 1+ (NONE SEEN); Band Neutrophils % 1 % (0-10); Basophils % (Manual) 2 % (0-2); Eosinophils % (Manual) 13 % (0-7); Lymphocytes % 38 % (15-49); Monocytes % (Manual) 3 % (1-12); Ovalocytes 1+ (NONE SEEN); Platelet Estimate NORMAL (NORMAL); RBC Morphology ABNORM (NORMAL); Segmented Neutrophils % 43 % (38-78)
[2017-07-10] MEDS: FUROSEMIDE 20 MG/2 ML VIAL IV SCH (09:47)
[2017-07-10] MEDS: amLODIPine 10 MG TABLET PO SCH (09:47)
[2017-07-10] MEDS: POTASSIUM CHLORIDE 20 MEQ TABLET PO SCH (09:47)
[2017-07-10] MEDS: MAGNESIUM OXIDE 400 MG TABLET PO SCH (09:47)
[2017-07-10] MEDS ORDERED: IOPAMIDOL 100 ML BOTTLE IV ONE (11:48)
--- NOTE | 2017-07-10 13:17 | Discharge Summary ---
Providers - Providers Patient information: Note initiated : 07/10/17 at 1:11 pm Service Date, if different from initiated Date: [] Patient: Josh Ac 87 y/o F admitted on 07/07/17 for Lower Abd Discomfort /Appendicitis, Mass of Cecum. Chief Complaint: [] Date of admission: 07/07/17 Discharge date: 07/10/17 Attending physician: Celina Humphrey Hospitalization Hospital course: 87-year-old female who was admitted with a mass of the cecum and acute appendicitis. The patient gives a history of onset of right lower quadrant pain without nausea vomiting on the morning of admission. The pain became progressively severe and she was seen in the emergency room. She had a elevated white count of 14,000 with tenderness in the right lower quadrant. Her pro time was elevated about 5. CT of the abdomen was done and this showed a mass of the cecum emanating from the area of the appendix with acute inflammation of the appendix with surrounding inflammation of the cecum and the appendix. The patient had had a colonoscopy less than 2 weeks prior to onset of the symptoms. Her pro time was elevated at that time to a level greater than 3. Biopsies of the cecum were also taken and the ileum was cannulated. After looking at the pictures which showed opening of the appendix very clearly without any inflammation or swelling in the area and after talking to Dr. Deleno it was surmised that she probably had a hematoma of the cecum that was blocking the opening of the appendix causing secondary obstructive appendicitis. It was elected to try to prevent from doing an appendectomy by correcting her pro time and treating her with antibiotics. This was done successfully. The patient's white count returned to normal. Her pain disappeared over 2 days. Follow-up CT this morning shows resolution of the cecal mass with no evidence of appendicitis. Patient is totally asymptomatic at this time and is tolerating a regular diet. She does not have nausea or vomiting. Her CT has been corrected to 1.6. She is advised to stay off her Coumadin for the next 3 days and then contact her primary physician to determine what level of anticoagulation they would like to keep her at. It is probable that the hematoma will not recur and she should not have any further problems with inflammation of the appendix. Since this is not primary appendicitis she will probably not need to have interval appendectomy. Discharge diagnosis: Cecal hematoma due to excess anticoagulation Secondary discharge diagnosis: Secondary appendicitis due to obstruction from hematoma Supratherapeutic anticoagulation due to warfarin History of congestive heart failure History of atrial fibrillation Reason for admission: Acute appendicitis and cecal mass Pertinent studies/significant findings: CT of abdomen and pelvis with contrast Complications: None Exam Temp Pulse Resp BP Pulse Ox 98.4 F 72 18 107/63 93 07/10/17 11:35 07/10/17 04:00 07/10/17 11:35 07/10/17 11:35 07/10/17 11:35 - General physical appearance well developed, well nourished, no distress - Eyes PERRL, normal ocular movement - ENT normal pinna, normal nares, normal mucosa, no hearing loss, no congestion - Head Head exam IM: Present: atraumatic, normocephalic - Neck no masses, no bruits, trachea midline, no lymphadectomy, no venous distension - Cardiovascular Cardiovascular exam IM: Present: normal rate and rhythm - Respiratory normal expansion, normal respiratory effort, clear to percussion, clear to auscultation - Abdomen Abdomen: Present: soft, non tender (Abdomen is totally benign soft and nondistended. There is no tenderness to palpation in the right lower quadrant or suprapubic area. There is no palpable mass), bowel sounds Hernia: Present: none - Integumentary Present: no rash, no growths, no abnormal pigmentation - Neurologic Present: normal coordination, normal sensation - Musculoskeletal Present: normal gait, normal posture - Psychiatric Present: oriented to time, oriented to person, oriented to place, speech is normal, memory intact Discharge Plan - Patient/Caregiver Discharge Instructions Activity: increase activity as tolerated Diet: Regular Diet Additional Instructions: Hold the Coumadin for 3 more days and contact your treating physician for direction on reinstituting the Coumadin - Follow up Plan Follow up with: Eduardo Hull MD [Physician] - Celina Humphrey MD [Physician] - Hetal Stubbs MD [Primary Care Provider] - Disposition: Home, Self-Care Prognosis: Good Rehab Potential: Good I certify that the patient requires SNF services.: No Overall status at discharge: patient is back to baseline Pending Studies Resuscitation Status Full Code Diet Regular Diet Start Sat Jul 10 Lunch Diet Regular Diet Start Sat Jul 10 Dinner Amlodipine Besylate (Norvasc) 10 mg PO DAILY [facility] Last Admin: 07/10/17 09:47 Dose: 10 mg Admin: 07/09/17 08:10 Dose: 10 mg Admin: 07/08/17 07:59 Dose: 10 mg Furosemide (Lasix) 20 mg IV BIDD [facility] Last Admin: 07/10/17 09:47 Dose: 20 mg Admin: 07/09/17 16:16 Dose: 20 mg Admin: 07/09/17 08:10 Dose: 20 mg Admin: 07/08/17 16:59 Dose: 20 mg Admin: 07/08/17 07:58 Dose: 20 mg Admin: 07/07/17 17:37 Dose: 20 mg Sodium Chloride (Sodium Chloride 0.9%) 1,000 mls @ 25 mls/hr IV .Q24H [facility] Last Admin: 07/09/17 18:43 Dose: 25 mls/hr Admin: 07/09/17 14:02 Dose: Not Given Infusion: 07/09/17 09:37 Dose: 25 mls/hr Admin: 07/08/17 16:59 Dose: Not Given Admin: 07/07/17 17:37 Dose: 25 mls/hr Piperacillin Sod/Tazobactam (Sod 2.25 gm/ Sodium Chloride) 50 mls @ 100 mls/hr IV Q6H [facility] Last Admin: 07/10/17 12:20 Dose: 100 mls/hr Infusion: 07/10/17 06:15 Dose: 0 mls/hr Admin: 07/10/17 05:43 Dose: 100 mls/hr Infusion: 07/10/17 00:20 Dose: 0 mls/hr Admin: 07/09/17 23:50 Dose: 100 mls/hr Infusion: 07/09/17 18:30 Dose: 0 mls/hr Admin: 07/09/17 17:56 Dose: 100 mls/hr Levothyroxine Sodium (Synthroid) 125 mcg PO QAMAC [facility] Last Admin: 07/10/17 07:10 Dose: 125 mcg Admin: 07/09/17 07:05 Dose: 125 mcg Admin: 07/08/17 07:11 Dose: 125 mcg Magnesium Oxide (Magnesium Oxide) 400 mg PO BID [facility] Last Admin: 07/10/17 09:47 Dose: 400 mg Admin: 07/09/17 20:04 Dose: 400 mg Admin: 07/09/17 08:10 Dose: 400 mg Admin: 07/08/17 20:30 Dose: 400 mg Admin: 07/08/17 07:59 Dose: 400 mg Morphine Sulfate (Morphine) 4 mg IV Q4HP PRN PRN Reason: Pain Last Admin: 07/08/17 01:51 Dose: 4 mg Potassium Chloride (Kdur) 40 meq PO BIDCC [facility] Last Admin: 07/10/17 09:47 Dose: 40 meq Admin: 07/09/17 17:56 Dose: 40 meq Admin: 07/09/17 08:10 Dose: 40 meq Admin: 07/08/17 16:58 Dose: 40 meq Admin: 07/08/17 07:59 Dose: 40 meq Admin: 07/07/17 17:40 Dose: 40 meq Sodium Chloride (Saline Flush) 10 ml IV Q8 [facility] Last Admin: 07/10/17 12:21 Dose: Not Given Admin: 07/10/17 05:42 Dose: Not Given Admin: 07/09/17 22:13 Dose: Not Given Admin: 07/09/17 14:02 Dose: Not Given Admin: 07/09/17 05:28 Dose: 10 ml Admin: 07/08/17 21:48 Dose: Not Given Admin: 07/08/17 12:19 Dose: 10 ml Admin: 07/08/17 05:30 Dose: Not Given Admin: 07/08/17 00:31 Dose: 10 ml Shift Summary 07/10/17 03:30 Shift Summary by Cabrera Ng Pt states she hasn't rested well through the night. Abdomen soft and non-tender upon palpation. On RA through night w/sats in upper 90's. Tolerating diet well. Ambulates to BR w/SBA. Ambulated from room to nurses station x1 this shift. Pt stated she felt a little unsteady while ambulating. Mcneil draining clear, yellow urine. 1 watery BM @ beginning of shift. IV to left FA running NS @ 25mL/ hr. Receiving IV lasix and ABO. Plan to have CT this am. Possible d/c today. Initialized on 07/10/17 03:30 - END OF NOTE
[2017-07-10] MEDS: 0.9 % SODIUM CHLORIDE 1,000 ML IV SCH (14:38)
--- NOTE | 2017-07-10 14:46 | Cat Scan Report ---
CLINICAL INFORMATION: Reason for Exam:f/u of cecal mass and appendiceal inflammation COMPARISON: 07/07/17 TECHNIQUE: Following oral contrast and the injection of intravenous contrast the patient was scanned during the portal venous phase from the diaphragm through the symphysis pubis. Sagittal and coronal reformats were created.. FINDINGS: There is a band of atelectasis posteriorly and medially in the right lower lobe. There is significantly improved aeration in both lung bases compared with the prior CT. The right-sided pleural effusion has nearly but not completely resolved. There is no residual left-sided pleural effusion. The heart remains enlarged. The liver is normal in size. The gallbladder is normal. There is mild dilatation of the proximal common bile duct but this tapers to normal caliber as it passes through the head of the pancreas to the ampulla. The pancreas and spleen are normal. The adrenals and kidneys are also normal. On the prior CT scan a 3.5 x 4.4 cm mass was seen within the cecum which covered the ostium to the appendix. This has since decreased substantially in size and now measures 1.2 x 1.4 cm. The appendix is still thickened, measuring 10.5 mm. It measures 12 mm diameter on the prior exam. There is no free fluid or abscess adjacent to the appendix. No free intraperitoneal air is present. The urinary bladder is decompressed by Mcneil catheter. Uterus and ovaries are atrophic. Oral contrast passes through colon to the rectum without obstruction. IMPRESSION: Near complete resolution of the mass in the cecum. This could be a hematoma related to the prior colonoscopy. A phlegmon related to appendicitis is possible but less likely. A colon cancer would not shrink this rapidly. Improved thickening of the appendix may be due to resolving appendicitis Resolving atelectasis and/or pneumonia in both lower lobes Interpreted and Authenticated by: Deon Pereira 07/10/17
== END 2017-07-10 13:50 | disposition home or self-care (01) | DRG 813 ==
LOC: ED 06:34 → MEDSUR 15:38
PROVIDERS: ADMIT Family Medicine Adult Medicine; ATTEND Family Medicine Adult Medicine